=== PATIENT | male | born 1980 | race Caucasian/White ===

== ENCOUNTER 2021-10-28 16:19 | Emergency (ER) | payer BC ==
[~2021-10-28] VITALS: Ht 180.3 cm; Wt 170.1 kg
[~2021-10-28 16:19] MED LIST: FLOMAX0.4 MG PO; HYDROCHLOROTHIA25 MG PO; IBUPROFEN800 MG PO; KETOROLAC TROME10 MG PO; LISINOPRIL10 MG PO; PERCOCET 5-3251 EACH PO
[2021-10-28] MEDS ORDERED: TRULICITY1.5 MG/0.5 SQ (16:40)
[2021-10-28] MEDS ORDERED: LOSARTAN POTAS100 MG PO (16:41)
[2021-10-28] MEDS ORDERED: AMLODIPINE BESYL5 MG PO (16:41)
[2021-10-28] MEDS ORDERED: METFORMIN HCL500 MG PO (16:41)
--- NOTE | 2021-10-29 15:21 | EKG ---
[facility] [address] [facility] [place] [address] Signed Sinus rhythm with frequent and consecutive premature ventricular complexes Prolonged QT Abnormal ECG No previous ECGs available Confirmed by HAIR EDEN MD ([id number]) on 10/29/2021 3:21:28 PM Electronically Signed By: HAIR EDEN MD 10/29/21 152 PATIENT NAME: ALAYNA ABBOTT WING Electrocardiogram DATE OF : 78 PHYSICIAN: HAIR EDEN MD REPORT #: [id number] REPORT IS CONFIDENTIAL AND NOT TO BE RELEASED WITHOUT AUTHORIZATION
== END 2021-10-28 20:29 | disposition home or self-care (01) ==
LOC: ED 16:19
DX: K52.9 Noninfective gastroenteritis and colitis, unspecified (principal); I49.3 Ventricular premature depolarization; I10 Essential (primary) hypertension; E11.9 Type 2 diabetes mellitus without complications; Z87.891 Personal history of nicotine dependence; Z79.899 Other long term (current) drug therapy; Z79.84 Long term (current) use of oral hypoglycemic drugs
CPT/HCPCS: 36415; 80053; 81001; 83690; 83735; 85025; 93005; 93010; 96360; 99284-25; J7030

== ENCOUNTER 2021-11-22 08:40 | Day surgery (SDC) | payer BC ==
[~2021-11-22] VITALS: Ht 180.3 cm; Wt 177.3 kg
[~2021-11-22 08:40] MED LIST changes: +AMLODIPINE BESYL5 MG PO; +LOSARTAN POTAS100 MG PO; +METFORMIN HCL500 MG PO; +TRULICITY1.5 MG/0.5 SQ
[2021-11-22] MEDS ORDERED: B COMPLEX1 EACH PO (08:55)
--- NOTE | 2021-11-22 11:08 | NUR ---
11/22/21 1108 Holli Garcia 1051 PT ARRIVED IN PACU NON RESPONSIVE TO NOXIOUS STIMULI WITH OPA IN PLACE. 1102 PT REACTIVE. OPA REMOVED. 1105 ICE TO BACK OF NECK.
--- NOTE | 2021-11-22 11:28 | NUR ---
1120: PT ARRIVES TO UNIT VIA STRETCHER FROM PACU. AWAKE AND ORIENTED ON ARRIVAL. VSS, RESP EVEN AND UNLABORED. DENIES PAIN AND NAUSEA. DRESSING TO BACK OF NECK C/D/I. ICE WATER AND PUDDING PROVIDED. POC DISCUSSED AND PT VOICES UNDERSTANDING. NO NEEDS AT THIS TIME. CALL LIGHT WITHIN REACH
[2021-11-22] MEDS ORDERED: HYDROCODON-ACE1 EAC8 PO (11:41)
--- NOTE | 2021-11-22 13:04 | NUR ---
1230: PT AWAKE AND ALERT WATCHING TV IN STRETCHER. VSS, RESP EVEN AND UNLABORED. CITLALI PO INTAKE. CONTS TO DENY PAIN AND NAUSEA. IV CONVERTED TO SL. PT DANGLES AT THE BEDSIDE. CITLALI WELL, DENIES DIZZINESS AND SOB. AMBULATES TO WITH STANDBY FROM THIS RN, STEADY GAIT. SUCCESSFUL FIRST POSTOP VOID, 500ML CLEAR YELLOW URINE. BACK TO ROOM. DRESSES SELF INDEPENDENTLY FOR DC 1250: SL REMOVED WITH CATH TIP INTACT AND PRESSURE APPLIED TO SITE, WNL. DC INSTRUCTIONS PROVIDED AND DISCUSSED ORDERED. PT VOICES UNDERSTANDING AND DENIES QUESTIONS AND CONCERNS AT THIS TIME. WHEELED OFF OF UNIT BY THIS RN IN . TRANSFERS INTO VEHICLE INDEPENDENTLY AND APPROPRIATELY. NO PHYSICAL S/S OF DISTRESS AT THIS TIME
--- NOTE | 2021-11-23 05:28 | OR ---
[facility] [address] [place], [place] [address] Signed DATE OF OPERATION: 11/22/2021 SURGEON: Fadia Rooney MD PREOPERATIVE DIAGNOSIS: Left posterior cervical subcutaneous mass (3 x 4 cm). POSTOPERATIVE DIAGNOSIS: Left posterior cervical subcutaneous mass (3 x 4 cm). PROCEDURES: Excision of left posterior cervical subcutaneous mass. ESTIMATED BLOOD LOSS: None. INDICATIONS: Alayna is a 41-year-old obese gentleman with a body mass index of 52. He has developed a subcutaneous mass below his left occiput. It has increased in size over the last 18 months. It is now at the point it is around 4 cm in diameter. He said to his knowledge has never been infected. He has never drained the surface. It started to bother him at work with activities and sleeping. He had been to his primary care provider. He was asked to see me as a general surgeon to have it removed. I had met with Alayna and his significant other in the office. I explained to them the nature of the transverse incision required to remove that lesion and have it removed for definitive diagnosis and treatment. They understand the expected intraop and postop course. There is risk including, but not limited to bleeding, infection, scarring, change in contour of the skin as well as recurrent lesions in the same or other locations. They had expressed understanding and wished to proceed. PROCEDURE IN DETAIL: I met with Alayna and his girlfriend in our preop area. We all identified that lesion easily and marked it appropriately. After this, Alayna was taken in the operating room and placed in the right lateral decubitus position under general endotracheal tube anesthesia. Appropriate padding and monitoring were placed. He was given preoperative antibiotics along with subcutaneous heparin. SCDs were utilized. He was then prepped and draped in the usual sterile fashion. A transverse incision was made over the lesion and carried down and around the lesion bluntly and with the cautery. We had injected local anesthetic around and underneath the lesion prior to starting. As we made our way around the lesion, we realized this was a lipoma. It was somewhat oval shaped and it Electronically Signed By: FADIA ROONEY MD 11/23/21 0528 PATIENT NAME: ALAYNA ABBOTT OPERATIVE REPORT DATE OF : 78 REPORT #: [id number] PHYSICIAN: FADIA ROONEY MD PCP: JAKE ACEVEDO MD REPORT IS CONFIDENTIAL AND NOT TO BE RELEASED WITHOUT AUTHORIZATION [facility] [address] [place], [place] [address] Signed traveled deep about 4 cm almost to the muscle. It was about 3 cm wide. The entire lesion was removed and passed off the field. The wound was irrigated and suctioned out until clear. We injected some additional local at the base of the wound. The dermis was reapproximated with interrupted 3-0 subcuticular Monocryl sutures. Skin edges were reapproximated with running 5-0 fast absorbing plain gut suture. Dry gauze and tape were then applied. It then took 6 people to rotate him back into the supine position onto his hospital bed. He was awakened from his anesthesia, extubated in the OR, and taken to recovery room in stable condition. Fadia Rooney MD ALB/MODL /[id number] cc: MD Fadia Desouza MD Copies: FADIA ROONEY MD ~ Electronically Signed By: FADIA ROONEY MD 11/23/21 0528 PATIENT NAME: ALAYNA ABBOTT OPERATIVE REPORT DATE OF : 78 REPORT #: [id number] PHYSICIAN: FADIA ROONEY MD PCP: JAKE ACEVEDO MD REPORT IS CONFIDENTIAL AND NOT TO BE RELEASED WITHOUT AUTHORIZATION
--- NOTE | 2021-11-24 15:45 | PATH ---
[facility] [address] [place], [place] [address] Signed SPECIMEN(S): A LEFT POSTERIOR NECK SPECIMEN SOURCE: A. LEFT POSTERIOR NECK CLINICAL HISTORY: Excision SQ mass, left posterior neck. FINAL PATHOLOGIC DIAGNOSIS: Soft tissue subcutaneous mass, left posterior neck, excision: - Spindle cell lipoma. NAL:cml:C2NR MICROSCOPIC EXAMINATION: Histologic sections of all submitted blocks are examined by light microscopy. These findings, together with the gross examination, support the pathologic diagnosis. Sections show a well-circumscribed tumor comprised of mature fat, ropey collagen and dispersed small bland spindle cells. A CD34 immunohistochemical stain (with appropriately staining controls) is positive in the spindle cells and fibrous stroma, supporting the diagnosis. GROSS DESCRIPTION: The specimen, labeled "DS, left posterior neck subcutaneous mass," is received in formalin and consists of one pink-madsen, soft, smooth fibroadipose tissue fragment that measures 4.5 x 3.5 x 2.5 cm. Sectioning through the specimen reveals regular adipose tissue surrounded with a thin capsule. [employer] sections are submitted in cassettes (A1-A2). JS (under the direct supervision of a pathologist) The Gross Description was prepared using a voice recognition system. The report was reviewed for accuracy; however, sound-alike word errors, addition and/or deletions may occur. If there is any question about this report, please contact Client Services. PERFORMING LABORATORY: The technical component was performed by [employer], [address] [place] [id number] (CLIA# [id number]). [facility], [address] [address] (CLIA# [id number]). PATIENT NAME: ALAYNA ABBOTT PATHOLOGY DATE OF : 78 REPORT #: [id number] PHYSICIAN: [facility] PCP: JAKE ACEVEDO MD REPORT IS CONFIDENTIAL AND NOT TO BE RELEASED WITHOUT AUTHORIZATION [address] [address] Signed Diagnostician: Elizabeth Ptots MD Pathologist Electronically Signed 11/24/2021 Copies: ~ PATIENT NAME: ALAYNA ABBOTT PATHOLOGY DATE OF : 78 REPORT #: [id number] PHYSICIAN: [facility] PCP: JAKE ACEVEDO MD REPORT IS CONFIDENTIAL AND NOT TO BE RELEASED WITHOUT AUTHORIZATION
== END 2021-11-22 12:50 | disposition home or self-care (01) ==
LOC: DS 08:40
PROVIDERS: ATTEND Colon & Rectal Surgery
PROC: 0JB50ZZ Excision of Left Neck Subcutaneous Tissue and Fascia, Open Approach (ICD-10-PCS; principal; 2021-11-22 10:00)
DX: D17.0 Benign lipomatous neoplasm of skin and subcutaneous tissue of head, face and neck (principal); I10 Essential (primary) hypertension; E11.9 Type 2 diabetes mellitus without complications; Z79.84 Long term (current) use of oral hypoglycemic drugs
CPT/HCPCS: 00300; J0690; J1100; J1644; J1885; J2001; J2405; J2704; J7121